=== PATIENT | female | born 1980 | race Caucasian/White ===

== ENCOUNTER 2016-03-26 13:31 | Emergency (ER) | payer OTHER ==
[2016-03-26] MEDS ORDERED: oxyCODONE-ACETAMINOPHEN 5-325 TAB PO ONE (13:46)
--- NOTE | 2016-03-26 13:53 | PDOC ---
Foot / Ankle Injury - General Chief Complaint: Lower Extremity Problem/Injury Stated Complaint: FALL W/ ANKLE INJURY Date Seen by Provider: 03/26/16 Time Seen by Provider: 13:30 Source: POSITIVE: Patient, EMS Exam Limitations: POSITIVE: No limitations Nurse's Notes Reviewed & Considered: Yes EMS Report Reviewed & Considered: Verbal - History of Present Illness Initial Comments: The patient is a 35-year-old female who is evaluated with left ankle pain. She [place] front [place] on some ice and twisted her left ankle. She felt a pop and experienced severe pain. She landed on her front side and was unable to get up out of the snow secondary to severe pain with any movement of her left ankle. EMS was subsequently called and arrived fairly quickly and placed a pillow splint over the left ankle and transported the patient here to the emergency department. She denies any other associated injuries. She did not hit her head and denies loss of consciousness. She denies chest wall or abdominal pain, back or neck pain. Her primary complaint is left ankle pain. She does not have any prior injury to her left ankle. Have you received a tetanus shot in the past 10 years?: Unknown - Patient Allergies Allergies/Adverse Reactions: Allergies Allergy/AdvReac Type Severity Reaction Status Date / Time aspirin Allergy Severe Anaphylaxis Verified 03/26/16 13:46 - Patient Home Medications Home Medications: Home Medications oxyCODONE/APAP 5/325 Tab [Percocet 5/325 Tab] 1 - 2 tab PO Q6H PRN #20 tab 03/11 Past Medical History Past Medical History Reviewed: Other (please comment) (Previous history of bond , does not take any medications currently) ROS - Limitations ROS Limitations: No Limitations (Review of systems otherwise noncontributory.) Foot / Ankle Exam - General Appearance General Appearance: POSITIVE: Alert, Cooperative, No Acute Distress - Extremities Foot: POSITIVE: Other (the patient's she was removed and her left foot appears grossly normal, she has a good dorsalis pedis pulse in the left foot, slightly diminished sensation in her toes although they are somewhat cold as well) Ankle: POSITIVE: Other (the left ankle has obvious swelling and tenderness, no tenderness to the left knee or proximal leg) Gait: POSITIVE: Limited by Pain Neuro: POSITIVE: Sensation Normal (she reports some mild numbness in her toes although they were cold from being outside as well), Motor Normal Vascular: POSITIVE: No Vascular Compromise Skin: POSITIVE: Warm, Other (no open wounds in the area of her ankle, she does have scarring from previous bond and skin grafting) - HEENT HEENT: POSITIVE: Head Inspection Nml (no open wounds in the area of her ankle) - Neck / Back Neck / Back: Normal Inspection - Respiratory / CVS Respiratory / CVS: POSITIVE: Chest Non-Tender, Heart Sounds Normal, Regular Rate /Rhythm, Breath Sounds Normal Peripheral Pulses: Dorsalis-pedis (L): 2+ - Abdomen Abdomen: Soft: (All Quadrants), Denies Tenderness: (All Quadrants), No Distention: (All Quadrants) Foot / Ankle Progress - Results Reviewed by me Radiology Findings: X-ray of the left ankle reveals multiple fractures of the distal tibia and fibula per radiologist. - Patient's Progress MDM / ED Course: She was given Percocet 5/325 #2 by mouth for pain. X-ray of the left ankle was obtained. X-ray revealed a fracture of the distal tibia and fibula. Dr. Simeon was contacted from orthopedic surgery. He did review the x-rays. The patient does have significant soft tissue swelling. She was placed ghazala L& U -splint and will follow-up with orthopedic surgery tomorrow. She is advised to be nonweightbearing on the left lower extremity. She is given crutches to assist with ambulation. She'll continue ice and elevation. She was given Percocet as needed for pain. She is advised return to the emergency room if increased pain or numbness, worsening or change in symptoms. - Consult Counseled: POSITIVE: Patient, Family, RE: Radiology Results, RE: DX, RE: Need for F/U Patient Care Time - Estimated PCT Patient Care Time (In Minutes): 30 Vital Signs - Recent Vital Signs Vital Signs: Vital Signs (Last 8 hours) Temp Pulse Resp BP Pulse Ox 03/26/16 13:35 97 F 112 H 20 133/66 97 - VS Reviewed Vital Signs Reviewed: Yes Discharge Clinical Impression: Bimalleolar ankle fracture Condition: Fair Prescriptions / Orders: oxyCODONE/APAP 5/325 Tab [Percocet 5/325 Tab] 1 - 2 tab PO Q6H PRN #20 tab PRN Reason: Pain Patient Instructions Given at Discharge: Ankle Fracture (ED) Additional Instructions: There is a fracture in the left ankle that will likely require surgery. Keep the splint in place. Nonweightbearing on the left foot. Use crutches to assist with ambulation. Ice and elevate the left ankle to reduce swelling. You can take Percocet 5/325 one to 2 every 6 hours as needed for pain. Return to the emergency room if increased pain or numbness, any worsening or change in symptoms. Follow-up with Dr. Simeon, call his office to schedule follow-up. Follow Up With: NONE,NONE [Primary Care Provider] -
--- NOTE | 2016-03-26 14:42 | DI ---
LEFT ANKLE, 03/26/2016 1:45 PM: Clinical History: Injury. The patient fell. Left ankle pain. Previous Exam: None at this facility. 3 views are submitted. There is a trimalleolar fracture dislocation with displacement of the talus la terally by approximately 1 cm and posteriorly. The posterior malleolar fracture component involves pr obably less than 10% of the total articular surface. No other fractures are identified. Reading: Trimalleolar fracture dislocation as above.
[2016-03-26 17:30] VITALS: RESP 20; TEMP 97
== END 2016-03-26 16:32 | disposition home or self-care (01) ==
LOC: ER 13:31
DX: S82.842A Displaced bimalleolar fracture of left lower leg, initial encounter for closed fracture (principal); W00.0XXA Fall on same level due to ice and snow, initial encounter; Y92.241 Library as the place of occurrence of the external cause
CPT/HCPCS: 29515; 73610; 99282

== ENCOUNTER 2016-03-29 05:52 | Day surgery (SDC) | payer OTHER ==
[2016-03-29] MEDS ORDERED: ceFAZolin Inj 2gm (Premix) 50 ML IV ONE (05:58)
[2016-03-29] MEDS ORDERED: Lactated Ringers 1,000 ML PRIMARY IV ONE ×3 (05:58→08:15)
[2016-03-29] MEDS ORDERED: LIDOCAINE W/ SODIUM BICARB 0.5 ML SYR ONE (05:58)
[2016-03-29 06:16] LABS: URINE SPECIFIC GRAVITY - MAN 1.031
[2016-03-29] MEDS ORDERED: DEXAMETHASONE SOD PHOSPHATE 4 MG/1 ML VIAL ONE ×2 (07:12→07:36)
[2016-03-29] MEDS ORDERED: fentaNYL Inj 250 MCG/5 ML VIAL ONE (07:12)
[2016-03-29] MEDS ORDERED: LIDOCAINE 2%/ EPI 1:200,000 - 20 ML VIAL ONE (07:12)
[2016-03-29] MEDS ORDERED: MIDAZOLAM 5 MG/1 ML ONE (07:12)
[2016-03-29] MEDS ORDERED: BUPivacaine Inj 0.5% PF (5mg/ml) 30ml vial ONE (07:12)
[2016-03-29] MEDS ORDERED: LIDOCAINE MPF 2% - 5 ML (20 MG/1 ML) ONE (07:29)
--- NOTE | 2016-03-29 07:31 | CRNA.PROCE ---
Nerve Block Documentation - - Type of Nerve Block Used: Left Popliteal Fossa Block Position for Nerve Block: Prone Moniters Used During Block: EKG, SPO2, NIBP Oxygen Sumpplented: Yes Sedation Used - Enter Amount in Comment Field: Midazolam (mg): Yes (2mg), Fentanyl (mcg): Yes (50mcg) Skin Prep Used: ChloroPrep Draped: No Technique: Nerve Stimulator Nerve Block Needle Used: 80 mm ProBlk II Stimulation Hz: 2 Stimulation Staring mA: 1.2 Stimulation Ending mA: 0.44 Local Anesthetic - Enter Amt in Comment Field: 0.5 % Bupivacaine Plain (mL): Yes (20ml), 2 % Xylocaine with Epinephrine 1:200,000 (mL): Yes (20ml) Additives to Nerve Blocks: Dexamethasone (mL): Yes (8mg(2ml))
[2016-03-29] MEDS ORDERED: Sodium Chloride 0.9% vial 10 ML ONE (07:32)
[2016-03-29] MEDS ORDERED: BACITRACIN 50,000 UNIT VIAL IRRIG ONE (07:32)
[2016-03-29] MEDS ORDERED: KETOROLAC 30 MG/1 ML VIAL ONE (09:58)
[2016-03-29] MEDS ORDERED: NORMAL SALINE 10 ML SYRINGE FLUSH IVP PRN ×2 (10:17→10:37)
[2016-03-29] MEDS ORDERED: HYDROmorphone 2 MG/1 ML IVP PRN (10:17)
[2016-03-29] MEDS ORDERED: PROMETHAZINE 25 MG/1 ML VIAL IM PRN (10:17)
[2016-03-29] MEDS ORDERED: Lactated Ringers 1,000 ML PRIMARY IV SCH ×2 (10:30→10:45)
[2016-03-29] MEDS ORDERED: HYDROmorphone 2 MG/1 ML ONE (10:35)
[2016-03-29] MEDS ORDERED: ONDANSETRON 4 MG/2 ML VIAL IVP PRN (10:37)
[2016-03-29] MEDS ORDERED: oxyCODONE/APAP 7.5/325 Tab 1 TAB TAB PO PRN (10:37)
[2016-03-29] MEDS ORDERED: MORPHINE SULFATE 2 MG/1 ML IVP PRN (10:37)
[2016-03-29] MEDS ORDERED: PROMETHAZINE 25 MG/1 ML VIAL IM ONE (10:40)
[2016-03-29] MEDS ORDERED: oxyCODONE/APAP 7.5/325 Tab 1 TAB TAB PO ONE (11:01)
[2016-03-29 12:07] VITALS: RESP 12
[2016-03-29 13:28] VITALS: TEMP 98.5
== END 2016-03-29 12:33 | disposition home or self-care (01) ==
LOC: SDSC 05:52
PROVIDERS: ATTEND Orthopaedic Surgery
DX: S82.852A Displaced trimalleolar fracture of left lower leg, initial encounter for closed fracture (principal); W00.0XXA Fall on same level due to ice and snow, initial encounter
CPT/HCPCS: 27822; 76001; 84703; 87641; A4216; E0155; J0690; J1885; J2704; J3010; J1100; J1170; J2001; J2250; J2550; J3490; J7120

== ENCOUNTER → 2016-04-07 | Outpatient (CLI) | payer OTHER ==
--- NOTE | 2016-04-07 12:29 | DI ---
XR ANKLE COMPLETE MIN 3VW,04/07/2016 11:21 AM: Clinical History: Trimalleolar fracture of the left ankle Previous Exam: March 26, 2006 Findings: 3 views of the left ankle are obtained, and demonstrate postsurgical changes consistent with lag scre w fixation of the left medial malleolus. There is screw and plate fixation of the lateral malleolus. Impression: Status post open reduction internal fixation of the left ankle.
== END ==
LOC: ORTHO 11:32
PROVIDERS: ATTEND Orthopaedic Surgery
DX: S82.852D Displaced trimalleolar fracture of left lower leg, subsequent encounter for closed fracture with routine healing (principal)
CPT/HCPCS: 73610

== ENCOUNTER → 2016-04-21 | Outpatient (CLI) | payer OTHER ==
--- NOTE | 2016-04-21 13:06 | DI ---
LEFT ANKLE, 04/21/2016 11:08 AM: Clinical History: Closed left trimalleolar fracture of the ankle with routine healing. Previous Exam: 04/07/2016. 3 views are submitted. Progressive obliteration of the fracture lucencies is noted at the site of the fracture of the medial malleolus and the distal fibula indicating healing. The fracture of the poste rior malleolus is obscured by the metallic fibular plate. On the lateral projection, there is a bony density measuring about 3 x 3 x 3 mm located just anterior to the ankle joint. This probably represen ts an avulsion fracture off of the anterolateral margin of the tibia. Readin. Status post ORIF of fractures of the medial and lateral malleoli with progressive healing in tres omic alignment and position. 2. The posterior malleolar fracture is not visualized. There is a bony density anterior to the ankle joint and this probably represents a small avulsion fracture fragment arising from the anterolateral margin of the distal tibia.
== END ==
LOC: ORTHO 11:30
PROVIDERS: ATTEND Orthopaedic Surgery
DX: S82.852E Displaced trimalleolar fracture of left lower leg, subsequent encounter for open fracture type I or II with routine healing (principal)
CPT/HCPCS: 73610

== ENCOUNTER → 2016-05-12 | Outpatient (CLI) | payer OTHER ==
--- NOTE | 2016-05-12 12:51 | DI ---
XR ANKLE COMPLETE MIN 3VW,05/12/2016 11:02 AM: Clinical History: Trimalleolar fracture of the left ankle with routine healing. Previous Exam: April 21, 2016 Findings: 3 views of the left ankle are obtained, and demonstrate stable postsurgical changes consistent with o pen reduction internal fixation of the left ankle. There are is a left ankle joint effusion. Impression: Healing left trimalleolar fracture.
== END ==
LOC: ORTHO 11:04
PROVIDERS: ATTEND Orthopaedic Surgery
DX: S82.852E Displaced trimalleolar fracture of left lower leg, subsequent encounter for open fracture type I or II with routine healing (principal)
CPT/HCPCS: 73610